=== PATIENT | female | born 1980 | race Caucasian/White ===

== ENCOUNTER 2016-09-29 10:50 | Emergency (ER) | payer OTHER ==
[~2016-09-29] VITALS: Wt 149.0 kg
[2016-09-29] MEDS ORDERED: AZIT250T94 PO (12:26)
[2016-09-29] MEDS ORDERED: IBUP-1542 PO (12:26)
--- NOTE | 2016-09-29 12:40 | ERD ---
ER Documentation Chief Complaint Date/Time DATE: 09/29/16 TIME: 12:35 Chief Complaint THROAT PAIN X1 DAY, NO COUGH, NO FEVER AT HOME HPI This is a 36-year-old female presents to the ER stating that this morning she woke up and her uvula was longer than usual, she states that she has discomfort in swallowing. Patient denies any throat pain. She denies any chest pain or shortness of breath. She denies any fevers or chills. Denies any recent cough or cold symptoms. There are no sick contacts at home. ROS \12 point review of systems was done, all negative except per HPI. Medications Home Meds Active Scripts Ibuprofen* (Motrin*) 600 Mg Tab, 600 MG PO Q6, #30 TAB Prov:JOHNATHON GUZMÁN 09/29/16 Azithromycin* (Zithromax*) 250 Mg Tablet, 250 MG PO .ZPACK DIRECTED, #6 TAB TAKE 500 MG (2 TABS) THE FIRST DAY THEN 250 MG (1 TAB) DAYS 2-5 Prov:JOHNATHON GUZMÁN 09/29/16 Allergies Allergies: Coded Allergies: No Known Allergy (Unverified , 09/29/16) PMhx/Soc History of Surgery: Yes (C SECTION) Anesthesia Reaction: No Hx Neurological Disorder: No Hx Respiratory Disorders: No Hx Cardiac Disorders: No Hx Psychiatric Problems: No Hx Miscellaneous Medical Probl: No Hx Alcohol Use: Yes Hx Substance Use: No Hx Tobacco Use: No Smoking Status: Never smoker Physical Exam Vitals Vital Signs Date Time Temp Pulse Resp B/P Pulse Ox O2 Delivery O2 Flow Rate FiO2 09/29/16 10:57 97.9 88 17 141/96 100 Physical Exam GENERAL: The patient is well developed and appropriate for usual state of health , in no apparent distress. HEENT: Atraumatic. Conjunctivae are pink. Pupils equal, round, and reactive to light. Extraocular muscles are grossly intact. Bilateral tympanic membranes are clear with no evidence of erythema, effusion or dulling of the light reflex. The oropharynx is clear with no erythema or exudates. There is no uvular deviation, uvula slightly longer, no kissing tonsils NECK: C-spine is soft and supple. There is no cervical lymphadenopathy. CHEST: Clear to auscultation bilaterally. There are no rales, wheezes or rhonchi. HEART: Regular rate and rhythm. No murmurs, clicks, rubs or gallops. EXTREMITIES: Full range of motion. Grossly neurovascularly intact. NEURO: Alert and oriented. Procedures/MDM This is a 36-year-old female that presents to the ER stating that her uvula is longer than usual. At this time there is no evidence of strep throat and her strep test is negative. She does not have any kissing tonsils or uvular deviation I doubt retropharyngeal abscess or peritonsillar abscess. She is afebrile and well-appearing. I discussed this case with Dr. Herrera, she agrees with my medical decision making. Patient will be sent home with azithromycin and ibuprofen. She is to follow-up with her primary care doctor within 1-2 days or return to ER sooner if symptoms worsen. My medical decision making was shared with the patient she understands and agrees with plan. Departure Diagnosis: Primary Impression: Uvulitis Condition: Stable Patient Instructions: Pharyngitis, Viral Additional Instructions: Call your primary care doctor TOMORROW for an appointment during the next 1-2 days.See the doctor sooner or return here if your condition worsens before your appointment time. JOHNATHON GUZMÁN Sep 29, 2016 12:39
== END 2016-09-29 12:44 | disposition home or self-care (01) ==
LOC: FTE 10:50
DX: K12.2 Cellulitis and abscess of mouth (principal)
CPT/HCPCS: 87880; Z7502; 99283

== ENCOUNTER 2017-01-01 18:37 | Emergency (ER) | payer OTHER ==
[~2017-01-01] VITALS: Ht 162.6 cm; Wt 151.0 kg
[~2017-01-01 18:37] MED LIST: AZIT250T94 PO; IBUP-1542 PO
[2017-01-01 18:50] VITALS: Ht 162.6 cm; Wt 151.0 kg
--- NOTE | 2017-01-01 21:46 | ERD ---
ER Documentation Chief Complaint Date/Time DATE: 01/01/17 TIME: 21:42 Chief Complaint numbness and tingling x 3 months HPI This is a 36-year-old female presenting to emergency department for numbness, tingling and swelling to bilateral lower extremities 3 months. Patient states this is a chronic problem however she was on a long car ride this past week and noticed increased swelling after. Patient noticed swelling remained and has not gone down since. No erythema, warmth, drainage or induration. Patient states she also has numbness and tingling to bilateral hands. Patient has usual shortness of breath with increased activity and relates this to her obesity. Patient denies any increased shortness of breath, difficulty breathing or chest pain. Patient states she felt lightheaded and had a presyncopal episode at work earlier today. Currently patient denies dizziness, lightheadedness or presyncopal symptoms. Patient states she has not had a physical exam in many years. ROS All systems reviewed and are negative except as per history of present illness. Medications Home Meds Active Scripts Ibuprofen* (Motrin*) 600 Mg Tab, 600 MG PO Q6, #30 TAB Prov:JOHNATHON GUZMÁN 09/29/16 Azithromycin* (Zithromax*) 250 Mg Tablet, 250 MG PO .ZPACK DIRECTED, #6 TAB TAKE 500 MG (2 TABS) THE FIRST DAY THEN 250 MG (1 TAB) DAYS 2-5 Prov:JOHNATHON GUZMÁN 09/29/16 Allergies Allergies: Coded Allergies: No Known Allergy (Unverified , 01/01/17) PMhx/Soc History of Surgery: Yes (C SECTION) Anesthesia Reaction: No Hx Neurological Disorder: No Hx Respiratory Disorders: No Hx Cardiac Disorders: No Hx Psychiatric Problems: No Hx Miscellaneous Medical Probl: No Hx Alcohol Use: Yes Hx Substance Use: No Hx Tobacco Use: No Smoking Status: Never smoker Physical Exam Vitals Vital Signs Date Time Temp Pulse Resp B/P Pulse Ox O2 Delivery O2 Flow Rate FiO2 01/01/17 23:07 98.6 77 16 142/88 100 Room Air 01/01/17 18:50 98.4 83 17 150/83 96 Physical Exam Const: No acute distress, alert Head: Atraumatic Eyes: Normal Conjunctiva ENT: Normal External Ears, Nose and Mouth. Neck: Full range of motion..~ No meningismus. Resp: Clear to auscultation bilaterally. No wheezing, rhonchi or crackles. Patient is talking in complete sentences. No stridor or labored breathing. Cardio: Regular rate and rhythm, no murmurs Abd: Soft, non tender, non distended. Normal bowel sounds Skin: No petechiae or rashes Back: No midline or flank tenderness Ext: 1+ edema to bilateral lower extremities. No erythema, warmth, induration or drainage. Neur: Awake and alert Psych: Normal Mood and Affect Result Diagram: 01/01/17214701/01/172147 Results 24 hrs Laboratory Tests Test 01/01/17 21:48 White Blood Count 9.510^3/ul Red Blood Count 4.8010^6/ul Hemoglobin 14.7g/dl Hematocrit 44.3% Mean Corpuscular Volume 92.3fl Mean Corpuscular Hemoglobin 30.6pg Mean Corpuscular Hemoglobin Concent 33.2g/dl Red Cell Distribution Width 12.5% Platelet Count 19142^3/UL Mean Platelet Volume 9.8fl Neutrophils % 66.4% Lymphocytes % 24.4% Monocytes % 6.4% Eosinophils % 1.9% Basophils % 0.6% Nucleated Red Blood Cells % 0.0/100WBC Neutrophils # 6.310^3/ul Lymphocytes # 2.310^3/ul Monocytes # 0.610^3/ul Eosinophils # 0.210^3/ul Basophils # 0.110^3/ul Nucleated Red Blood Cells # 0.010^3/ul Sodium Level 140mmol/L Potassium Level 3.9mmol/L Chloride Level 106mmol/L Carbon Dioxide Level 29mmol/L Anion Gap 9 Blood Urea Nitrogen 9mg/dl Creatinine 0.60mg/dl Glucose Level 95mg/dl Calcium Level 9.1mg/dl Procedures/MDM ED COURSE: The patient was stable throughout ED course. I kept the patient and/or family informed of laboratory and diagnostic imaging results throughout the ED course. Laboratory CBC no significant infection or anemia BMP no significant electrolyte imbalance Imaging Chest x-ray Patient: YOKASTA OCHOA : 1980 Age: 36 Sex: F MR #: [id number] DOS: 01/01/172137 Ordering MD: LIVIER ASTORGA NP Location: [facility] Room/Bed: PROCEDURE: XR Chest. CLINICAL INDICATION: Shortness of breath. TECHNIQUE: AP Portable chest. COMPARISON: No pertinent prior examinations were submitted for comparison. FINDINGS: The cardiomediastinal silhouette is normal. The lungs are clear. The osseous structures are unremarkable. IMPRESSION: No acute findings. venous ultrasound lower extremities Patient: YOKASTA OCHOA : 1980 Age: 36 Sex: F MR #: [id number] [facility] #: [id number] DOS: 01/01/178 Ordering MD: LIVIER ASTORGA NP Location: [facility] Room/Bed: PROCEDURE: US bilateral lower extremity venous Doppler CLINICAL INDICATION: Bilateral swelling TECHNIQUE: Multiple sonographic images of the bilateral lower extremity deep venous system was obtained utilizing grayscale, color-flow, compressive sonography and Doppler imaging with augmentation. COMPARISON: There are no similar studies submitted for comparison. FINDINGS: There is normal compressibility and flow within the bilateral common femoral, superficial femoral, popliteal, and calf veins. IMPRESSION: No evidence of DVT within the lower extremities. MDM: 36-year-old female presents emergency department for numbness, tingling and swelling of bilateral lower extremities for the past 3 months. Patient also has intermittent numbness and tingling to bilateral hands. Patient states earlier today she had presyncopal episode of dizziness and lightheadedness while at work. Denies syncope. Currently denies shortness of breath, difficulty breathing or chest pain. Chest x-ray reviewed by radiologist as no acute findings. Venous ultrasound to bilateral lower extremities reviewed by radiologist as no evidence of DVT. On physical exam patient has 1+ edema to bilateral lower extremities. Patient has full sensation. Vital signs are stable. Patient is afebrile. Patient denies pain. Remains neurovascularly intact. Low suspicion for DVT, CHF or peripheral arterial disease. Diagnosis is paraesthesia not otherwise specified. Patient is appropriate for outpatient management. Instructed patient to follow up with PCP in the next 2-3 days for reassessment and additional management. Return to ED for any chest pain, shortness of breath, difficulty breathing, high fever, abdominal pain or any new or worsening symptoms. Patient verbalizes understanding . All questions answered at discharge. Departure Diagnosis: Primary Impression: Paresthesia Condition: Stable LIVIER ASTORGA NP Jan 01, 2017 21:46
[2017-01-01 22:00] LABS: ADD SCAN DIFF NO
[2017-01-01 22:01] LABS: BASOPHIL # 0.1 10^3/ul (0.0-0.1); BASOPHILS % 0.6 % (0.0-2.0); EOSINOPHILS # 0.2 10^3/ul (0.0-0.5); EOSINOPHILS % 1.9 % (0.0-7.0); HEMATOCRIT 44.3 % (37.0-47.0); HEMOGLOBIN 14.7 g/dl (12.0-16.0); LYMPHOCYTES # 2.3 10^3/ul (0.8-2.9); LYMPHOCYTES % 24.4 % (15.0-51.0); MEAN CORPUSCULAR HEMOGLOBIN 30.6 pg (29.0-33.0); MEAN CORPUSCULAR HGB CONC 33.2 g/dl (32.0-37.0); MEAN CORPUSCULAR VOLUME 92.3 fl (82.0-101.0); MEAN PLATELET VOLUME 9.8 fl (7.4-10.4); MONOCYTE # 0.6 10^3/ul (0.3-0.9); MONOCYTES % 6.4 % (0.0-11.0); NEUTROPHIL # 6.3 10^3/ul (1.6-7.5); NEUTROPHILS % 66.4 % (39.0-77.0); PLATELET COUNT 333 10^3/UL (140-415); RED CELL DISTRIBUTION WIDTH 12.5 % (11.5-14.5); WHITE BLOOD COUNT 9.5 10^3/ul (4.8-10.8)
[2017-01-01 22:13] LABS: CALCIUM 9.1 mg/dl (8.4-10.2); CREATININE 0.6 mg/dl (0.44-1.00); POTASSIUM 3.9 mmol/L (3.5-5.1)
--- NOTE | 2017-01-01 22:20 | RADRPT ---
PROCEDURE: US bilateral lower extremity venous Doppler CLINICAL INDICATION: Bilateral swelling TECHNIQUE: Multiple sonographic images of the bilateral lower extremity deep venous system was obt ained utilizing grayscale, color-flow, compressive sonography and Doppler imaging with augmentation. COMPARISON: There are no similar studies submitted for comparison. FINDINGS: There is normal compressibility and flow within the bilateral common femoral, superficial femoral, p opliteal, and calf veins. IMPRESSION: No evidence of DVT within the lower extremities. RPTAT: HIKT .Mihai Medina MD, MD Date Time Electronically viewed and signed by .Mihai Medina MD, MD on 01/01/2017 22:20 .T/
--- NOTE | 2017-01-01 22:49 | RADRPT ---
PROCEDURE: XR Chest. CLINICAL INDICATION: Shortness of breath. TECHNIQUE: AP Portable chest. COMPARISON: No pertinent prior examinations were submitted for comparison. FINDINGS: The cardiomediastinal silhouette is normal. The lungs are clear. The osseous structures are unrema rkable. IMPRESSION: No acute findings. RPTAT: HIKT .Mihai Medina MD, MD Date Time Electronically viewed and signed by .Mihai Medina MD, MD on 01/01/2017 22:48 .T/
[2017-01-01 23:07] VITALS: BP 142/88; PULSE 77; RESP 16; TEMP 98.6
== END 2017-01-01 23:08 | disposition home or self-care (01) ==
LOC: FTE 18:37
DX: R20.2 Paresthesia of skin (principal); R06.02 Shortness of breath
CPT/HCPCS: 36415; 71010; 80048; 85025; 93970